=== PATIENT | female | born 1970 | race Caucasian/White ===

== ENCOUNTER 2020-04-22 21:18 | Emergency (ER) | payer BC, MEDICAID ==
[2020-04-22 21:36] VITALS: BP 121/64; PULSE 122
[2020-04-22] MEDS ORDERED: Lidocaine 5% 700 MG Patch TOP ONE (21:36)
[2020-04-22] MEDS ORDERED: Ibuprofen 600 MG Tab PO ONE (21:36)
--- NOTE | 2020-04-22 22:37 | EDM.PDOC ---
ED HPI GENERAL MEDICAL PROBLEM - General Chief Complaint: Back Pain or Injury Stated Complaint: ABDOMINAL PAIN Time Seen by Provider: 04/22/20 21:20 Source of Information: Reports: Patient History Limitations: Reports: No Limitations - History of Present Illness INITIAL COMMENTS - FREE TEXT/NARRATIVE: Patient is a 49-year-old female is complaining of having back pain which is been going on for several days starting after a Medrol gait fell on her injuring her back. Patient presents with a contusion next to her right CVA area. Patient states pain is gotten worse and is worse with movement. She also is complaining of having increased urinary frequency and hesitancy. She denies any dysuria or hematuria. Denies any abdominal injury. Patient is able to ambulate with some pain and she points to her right iliac crest as the most painful area. She has no spinal injury and denies any chest or rib injury. She does not feel short of breath. She denies being nauseous or vomiting or having any bloody or tarry stools. She is taking nothing for her pain. She denies ever having previously similar injury. Duration: Day(s): (2 days) Location: Reports: Back Quality: Reports: Ache, Dull Severity: Moderate Improves with: Reports: None Worsens with: Reports: Movement Context: Reports: Trauma Associated Symptoms: Reports: No Other Symptoms back Pain Score (Numeric/FACES): 6 - Related Data Allergies Allergy/AdvReac Type Severity Reaction Status Date / Time No Known Allergies Allergy Verified 07/17/14 10:29 Home Meds: Home Meds SUMAtriptan [Imitrex] 100 mg PO DAILY PRN 04/22/20 [History] Past Medical History [employer] History: Reports: Ectopic Other Musculoskeletal History: Degenerative Disk Disease Neurological History: Reports: Migraines Social & Family History - Tobacco Use Smoking Status *Q: Current Every Day Smoker Years of Tobacco use: 30 Packs/Tins Daily: 0.2 - Caffeine Use Caffeine Use: Reports: Tea - Recreational Drug Use Recreational Drug Use: No ED ROS GENERAL - Review of Systems Review Of Systems: Comprehensive ROS is negative, except as noted in HPI. ED EXAM,LOWER BACK PAIN/INJURY - Physical Exam Exam: See Below Exam Limited By: No Limitations General Appearance: Alert, No Apparent Distress Head: Atraumatic, Normocephalic Neck: Normal Inspection, Supple, Non-Tender Respiratory/Chest: No Respiratory Distress, Lungs Clear, Normal Breath Sounds Cardiovascular: Regular Rate, Rhythm, No Edema GI/Abdominal: Normal Bowel Sounds, Soft, Non-Tender, No Organomegaly Back Exam: Other (Patient does have a fairly large ecchymotic area on her right lower back which is where most of her pain is present.). No: CVA Tenderness (L) , CVA Tenderness (R), Vertebral Tenderness Extremities: Normal Inspection, Normal Range of Motion Neurological: Alert, Normal Mood/Affect Psychiatric: Normal Affect Skin Exam: Warm, Dry Course - Vital Signs Text/Narrative:: Pelvic x-ray shows no sign of any injury. Patient's urine shows no sign of any infection. I had ordered a bladder scan which patient is left AWOL prior to that being done. I am uncertain if patient was feeling better since she left before I could recheck her. Last Recorded V/S: Last Vital Signs Temp 35.7 C L 04/22/20 21:32 Pulse 122 H 04/22/20 21:32 Resp 18 04/22/20 21:32 BP 121/64 04/22/20 21:32 Pulse Ox 92 L 04/22/20 21:32 - Orders/Labs/Meds Orders: Active Orders 24 hr Category Date Time Status Bladder Scan [RC] ASDIRECTED Care 04/22/20 22:28 Active Labs: Laboratory Tests 04/22/20 04/22/20 Range/Units 21:36 21:36 Urine Color YELLOW Urine Appearance CLEAR Urine pH 5.5 (5.0-8.0) Ur Specific [place] 1.025 (1.001-1.035) Urine Protein NEGATIVE (NEGATIVE) mg/dL Urine Glucose (UA) NEGATIVE (NEGATIVE) mg/dL Urine Ketones NEGATIVE (NEGATIVE) mg/dL Urine Occult Blood NEGATIVE (NEGATIVE) Urine Nitrite NEGATIVE (NEGATIVE) Urine Bilirubin NEGATIVE (NEGATIVE) Urine Urobilinogen 0.2 (<2.0) EU/dL Ur Leukocyte Esterase NEGATIVE (NEGATIVE) Urine RBC 0-1 (0-2/HPF) Urine WBC 0-3 (0-5/HPF) Ur Epithelial Cells OCCASIONAL (NONE-FEW) Urine Bacteria RARE (NEGATIVE) Urine HCG, Qual NEGATIVE (NEGATIVE) Meds: Medications Discontinued Medications Generic Name Dose Route Start Last Admin Trade Name Freq PRN Reason Stop Dose Admin Ibuprofen 600 mg 04/22/20 21:36 04/22/20 22:30 Motrin PO 04/22/20 21:37 600 mg ONETIME ONE Administration Lidocaine 700 mg 04/22/20 21:36 04/22/20 22:31 Lidoderm 5% TOP 04/22/20 21:37 700 mg ONETIME ONE Administration Departure - Departure Time of Disposition: 23:22 Disposition: Eloped 07 Clinical Impression: Contusion of back - Discharge Information Instructions: Contusion, [id number] Referrals: PCP,None [Primary Care Provider] - Forms: ED Department Discharge Care Plan Goals: Ice and ibuprofen with meals. Qkyk-fib-[id number] lidoderm if needed. Return to ER if worse. Follow-up with PCP if not improving. Sepsis Event Note - Evaluation Sepsis Screening Result: No Definite Risk - Focused Exam Vital Signs: Vital Signs Temp Pulse Resp BP Pulse Ox 04/22/20 21:32 35.7 C L 122 H 18 121/64 92 L Date Exam was Performed: 04/22/20 Time Exam was Performed: 23:21 - My Orders Last 24 Hours: My Active Orders 04/22/20 22:28 Bladder Scan [RC] ASDIRECTED - Assessment/Plan Last 24 Hours: My Active Orders 04/22/20 22:28 Bladder Scan [RC] ASDIRECTED
--- NOTE | 2020-04-22 23:07 | CR ---
INDICATION: Metal gate fell on patient. Bruising to right buttock. TECHNIQUE: AP pelvis with AP and lateral views of the right hip. Total of 4 images. COMPARISON: None FINDINGS: Bones: Alignment is normal. No acute fractures or aggressive osseous lesions seen. Joint spaces: The hip joints are unremarkable. The visualized sacroiliac (SI) joints are unremarkable in appearance. Soft tissues: The visualized bowel gas pattern of the pelvis is unremarkable in appearance. The soft tissues of the pelvic girdle are unremarkable. No radiopaque foreign bodies are noted. IMPRESSION: 1. No acute osseous injuries are identified. Dictated by Soy Zapata MD @ 04/22/2020 11:05:43 PM Dictated by: Soy Zapata MD @ 04/22/2020 23:05:47 (Electronically Signed)
== END 2020-04-22 23:20 | disposition left against medical advice (07) ==
LOC: MW.ED 21:18
DX: S30.0XXA Contusion of lower back and pelvis, initial encounter (principal); G43.909 Migraine, unspecified, not intractable, without status migrainosus; F17.210 Nicotine dependence, cigarettes, uncomplicated; Z79.899 Other long term (current) drug therapy; W20.8XXA Other cause of strike by thrown, projected or falling object, initial encounter
CPT/HCPCS: 72190; 81001; 81025; 99283; A9270; 99282